=== PATIENT | male | born 1975 | race Caucasian/White ===

== ENCOUNTER 2017-10-29 13:29 | Emergency (ER) | payer SELFPAY ==
[2017-10-29 13:38] VITALS: BP 140/81; PULSE 94; RESP 17; TEMP 98.4; O2SAT 97
[2017-10-29] MEDS ORDERED: Albuterol 0.083% Inhal Sol (2.5 mg/3 mL) UD IH STA (13:56)
[2017-10-29] MEDS ORDERED: Promethazine/Cod 6.25mg-10mg/5ml Syr UD PO STA (13:56)
[2017-10-29] MEDS ORDERED: Amoxicillin-Clav 875-125 mg Tab PO STA (13:56)
--- NOTE | 2017-10-29 13:57 | C.PDOC ---
History Of Present Illness 42 year old male with no PMHx presents to the ED for evaluation of sore throat and dry cough gradually developing for a few days. Patient notes throat pain was worse today and experienced discomfort with swallowing. Patient reports left side neck swelling. Patient denies fever, chills, headache, drooling, shortness of breath, wheezing, or other complaints at this time. Time Seen by Provider: 10/29/17 13:34 Chief Complaint (Nursing): ENT Problem History Per: Patient History/Exam Limitations: None Onset/Duration Of Symptoms: Days, Gradual Current Symptoms Are (Timing): Still Present Anticoagulant/Antiplatlet Use?: No Recent Aspirin Use: No Past Medical History Reviewed: Historical Data, Nursing Documentation, Vital Signs Vital Signs: Last Vital Signs Temp 98.4 F 10/29/17 13:36 Pulse 94 H 10/29/17 13:36 Resp 17 10/29/17 13:36 BP 140/81 10/29/17 13:36 Pulse Ox 97 10/29/17 14:27 Family History: States: Unknown Family Hx - Social History Hx Alcohol Use: Yes Hx Substance Use: No - Immunization History Hx Tetanus Toxoid Vaccination: No Hx Influenza Vaccination: No Hx Pneumococcal Vaccination: No Review Of Systems Constitutional: Negative for: Fever, Chills ENT: Positive for: Other (no drooling ) Cardiovascular: Negative for: Chest Pain, Palpitations Respiratory: Positive for: Cough. Negative for: Shortness of Breath, Wheezing Neurological: Negative for: Headache Physical Exam - Physical Exam Appears: Non-toxic, No Acute Distress Skin: Warm, Dry, No Rash Head: Normacephalic, No Tenderness Eye(s): bilateral: PERRL Ear(s): Bilateral: Normal Nose: Discharge, No Deformity, No Tenderness Oral Mucosa: Moist, No Drooling Tongue: Normal Appearing Lips: Normal Appearing Throat: Erythema (erythema bilaterally ), Exudate (left tonsilar exudate), Other (edema bilaterally) Neck: Supple Lymphatic: Adenopathy (left submandibular adenopathy) Chest: Symmetrical, No Deformity Cardiovascular: Rhythm Regular, No Murmur Respiratory: No Decreased Breath Sounds, No Accessory Muscle Use, No Rales, No Rhonchi, No Wheezing, Other (clear to auscultation bilaterally ) Gastrointestinal/Abdominal: Soft, No Tenderness, No Distention, No Guarding, No Rebound Back: No CVA Tenderness Extremity: Normal ROM, No Pedal Edema Neurological/Psych: Oriented x3, Normal Speech ED Course And Treatment O2 Sat by Pulse Oximetry: 97 (RA) Pulse Ox Interpretation: Normal Progress Note: Patient was given Augmentin, Phenergan/Codeine, albuterol, and prednisone. On re-evAl, pt is afebrile, hemodynamicalys table. non-toxic. Ambulatory in ED with stable gait. pULSeoX 97% RA. ENT: exam c/w acute tonsilitis. uvula midline, no edema. Neck: SUpple, (-) meningeal sign, (-) JVD , (-) carotid bruits. Lungs: CTA B/L, BS equal B/L. Abd: benign. Neuorlogicaly intact. results review and discussed with pt. Vice President [employer] dvised and ref. to F/u with PMD in 2-3 days for re-eavl. return to ED if any worsening or new changes. Disposition Counseled Patient/Family Regarding: Diagnosis, Need For Followup, Rx Given - Disposition Referrals: [facility] [Outside] Josue Cabello MD [Staff Provider] - Disposition: HOME/ ROUTINE Disposition Time: 13:57 Condition: STABLE Additional Instructions: ENCOURAGE FLUIDS TAKE MEDICATION PRESCRIBED FOLLOW UP WITH PMD IN 2-3 DAYS FOR RE-EVALUATION. RETURN TO ED IF ANY WORSENING OR NEW CHANGES. Prescriptions: Amoxicillin/Clavulanate [Augmentin 875 MG-125 MG] 1 tab PO BID #14 tab Benzonatate [Tessalon Perle] 100 mg PO TID #14 capsule Prednisone [Deltasone] 40 mg PO DAILY #6 tablet Instructions: Tonsillitis (ED) Forms: [employer] (German) - Clinical Impression Clinical Impression: Acute tonsillitis - PA / [employer]PER[employer] / Resident Statement MD/DO has reviewed & agrees with the documentation as recorded. - Scribe Statement The provider has reviewed the documentation as recorded by the Scribe Sarah Henderson All medical record entries made by the Scribe were at my direction and personally dictated by me. I have reviewed the chart and agree that the record accurately reflects my personal performance of the history, physical exam, medical decision making, and the department course for this patient. I have also personally directed, reviewed, and agree with the discharge instructions and disposition.
[2017-10-29] MEDS ORDERED: Amoxicillin-Clav 875-125 mg Tab PO ONE (14:09)
[2017-10-29] MEDS ORDERED: Promethazine/Cod 6.25mg-10mg/5ml Syr UD ONE (14:11)
[2017-10-29] MEDS ORDERED: Albuterol 0.083% Inhal Sol (2.5 mg/3 mL) UD ONE (14:16)
== END 2017-10-29 14:51 | disposition home or self-care (01) ==
LOC: C.ER 13:29
DX: J03.90 Acute tonsillitis, unspecified (principal)